=== PATIENT | male | born 1995 | race Caucasian/White ===

== ENCOUNTER 2020-09-03 00:48 | Emergency (ER) | payer OTHER, SELFPAY ==
[2020-09-03 01:03] VITALS: BP 158/80; PULSE 71; RESP 17; TEMP 36.7; O2SAT 98; BMI 30.1
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
[2020-09-03 02:41] VITALS: BP 129/80; PULSE 62; RESP 16; TEMP 36.7; O2SAT 98
== END 2020-09-03 02:49 | disposition home or self-care (01) ==
PROVIDERS: Emergency Provider Emergency Medicine; PCP Family Medicine
DX: M54.6 Pain in thoracic spine (principal); V58.0XXA Driver of pick-up truck or van injured in noncollision transport accident in nontraffic accident, initial encounter; Y92.488 Other paved roadways as the place of occurrence of the external cause
CPT/HCPCS: 71046; 72072; 72110; 72170; 99282